=== PATIENT | male | born 1950 | race Caucasian/White ===

== ENCOUNTER 2018-09-30 18:33 | Emergency (ER) | payer MEDICARE ==
[~2018-09-30 18:33] MED LIST: EPINEPHRINE INJ 1 MG/10 ML DISP.SYRIN ONE; SODIUM BICARBONATE 8.4% INJ 50 MEQ/50 ML DISP.SYRIN ONE
--- NOTE | 2018-09-30 18:51 | ER Document Report ---
ED General - General Stated Complaint: DIFFICULTY BREATHING Time Seen by Provider: 09/30/18 18:49 Cannot obtain history due to: Intubated, Unstable vital signs Notes: Patient is a 68-year-old male with a past medical history of emphysema who presents in cardiac arrest. No further history can be obtained as patient is actively being coded at time of presentation. EMS does report that the patient was apparently bailey, cyanotic, saturating 60% when they arrived. Despite resuscitative efforts the patient did proceed to a PEA cardiac arrest. Past Medical History - General Information source: Emergency Med Personnel Cannot obtain history due to: Intubated, Unstable vital signs - Social History Smoking Status: Unknown if Ever Smoked Family History: Reviewed & Not Pertinent Review of Systems - Review of Systems -: Yes ROS unobtainable due to patient's medical condition Physical Exam - Vital signs Notes: PHYSICAL EXAMINATION: GENERAL: Cyanotic, unresponsive HEAD: Atraumatic, normocephalic. EYES: Pale conjunctiva ENT: ET tube in place NECK: Supple LUNGS: Bilateral breath sounds with bagging HEART: Absent pulses throughout EXTREMITIES: no pitting or edema. Diffuse cyanosis NEUROLOGICAL: GCS 3 T PSYCH: Unable to assess SKIN: Pale, cool to touch Course - Re-evaluation Re-evalutation: 09/30/18 18:49 Documentation is delayed as I been at the patient's bedside assisting with ACLS protocols. Patient did arrive in PEA arrest from EMS apparently initiated by a hypoxic respiratory arrest in the setting of COPD exacerbation. Patient has been being coded for over 15 minutes of continuous PEA without return of spontaneous circulation during that interval. Patient was continued on standard ACLS protocols. Continuous bedside echocardiogram was used during coding in the subxiphoid view. At no point did the patient have any spontaneous cardiac activity. After 10 minutes of additional code time, multiple rounds of bicarbonate, epinephrine, patient continued to be without any spontaneous circulation. Given that his total code time in PEA he was approaching almost 30 minutes his chance for survival to discharge with neurologic function was effectively 0. I therefore discontinued resuscitative efforts. Time of 1841. Family notified. Discharge - Discharge Clinical Impression: Respiratory arrest, PEA (Pulseless electrical activity), Hypoxia Disposition:
== END 2018-09-30 22:43 | disposition expired ==
LOC: ER 18:33 → EDBD 18:33 → ER 22:43
DX: I46.9 Cardiac arrest, cause unspecified (principal); J43.9 Emphysema, unspecified
CPT/HCPCS: 99285; 92950; J0171; J3490